=== PATIENT | female | born 1935 | race Caucasian/White ===

== ENCOUNTER 2017-03-10 19:15 | Emergency (ER) | payer OTHER ==
[2017-03-10 20:00] VITALS: BP 155/68; PULSE 70; RESP 20; TEMP 98.6; O2SAT 98
[2017-03-10 21:30] VITALS: BP 128/79; PULSE 77; RESP 18; O2SAT 95
[2017-03-10] MEDS ORDERED: LEVO.1 PO (21:39)
[2017-03-10] MEDS ORDERED: IBAN150T3 PO (21:39)
[2017-03-10] MEDS ORDERED: RANI150T PO (21:39)
[2017-03-10] MEDS ORDERED: GABA400C5 PO (21:39)
[2017-03-10] MEDS ORDERED: GABA600T PO (21:39)
[2017-03-10] MEDS ORDERED: ATEN100T7 PO (21:39)
[2017-03-10] MEDS ORDERED: HYDR-2376 PO (21:39)
[2017-03-10] MEDS ORDERED: LISI40TA PO (21:39)
[2017-03-10] MEDS ORDERED: ATOR80TA45 PO (21:39)
--- NOTE | 2017-03-10 21:41 | PD ---
HPI Chief Complaint: Flank/Kidney Pain Time Seen by Provider: 21:22 Travel History International Travel<30 days: No Contact w/Intl Traveler<30days: No Traveled to known affect area: No History of Present Illness HPI Patient comes in complaining of 4 days off and on of left sided rib pain lateral aspect. It is worsened with movement. It is temporary alleviated with the hydrocodone she takes every 6 hours for her peripheral neuropathy. She denies short of breath she denies cough she denies trauma or injury. Denies heavy lifting her main complaint is localized left-sided rib pain made worse with movement or turning or deep inspiration but denies cough or fever and no URI symptoms no one else is sick with a upper respiratory infection PFSH Past Medical History Heart Rhythm Problems: Yes Diminished Hearing: No GERD: Yes Hypertension: Yes Neurologic: Yes (NEUROPATHY) Thyroid Disease: Yes Tetanus Vaccination: < 5 Years Influenza Vaccination: Yes ?: Not Past Surgical History Body Medical Devices: CUSHION STUFFER Cardiac Surgery: Yes (INCERTABLE CUSHION STUFFER) Hysterectomy: Yes Social History Alcohol Use: No Tobacco Use: No Substance Use: No Allergies-Medications (Allergen,Severity, Reaction): Coded Allergies: NSAIDS (Non-Steroidal Anti-Inflamma (Verified Allergy, Severe, 03/10/17) DUE TO KIDNEYS No Known Allergies (Verified Allergy, Unknown, 03/10/17) Reported Meds & Prescriptions Reported Meds & Active Scripts Active Bactrim DS (Sulfamethoxazole-Trimethoprim) 800-160 Mg Tab 1 Tab PO BID Valium (Diazepam) 2 Mg Tab 2 Mg PO TID PRN Reported Atorvastatin (Atorvastatin Calcium) 80 Mg Tab 80 Mg PO HS Atenolol-Chlorthalidone 100-25 Mg Tab 1 Tab PO DAILY Ibandronate (Ibandronate Sodium) 150 Mg Tab 150 Mg PO Q28D Synthroid (Levothyroxine Sodium) 100 Mcg Tab 100 Mcg PO DAILY Ranitidine (Ranitidine HCl) 150 Mg Tab 150 Mg PO DAILY Hydrocodone-Acetaminophen 7.5-300 Mg Tab 1 Tab PO Q6H PRN Gabapentin 600 Mg Tab 1,200 Mg PO HS Gabapentin 400 Mg Cap 400 Cap PO AM Lisinopril 40 Mg Tab 40 Mg PO DAILY Review of Systems Except as stated in HPI: all other systems reviewed are Neg Respiratory: Positive: Other (patient has left lateral rib pain), No: Cough, Shortness of Breath, Wheezing Physical Exam Narrative GENERAL: In no acute distress awake alert pleasant attitude SKIN: Warm and dry. HEAD: Atraumatic. Normocephalic. EYES: Pupils equal and round. No scleral icterus. No injection or drainage. ENT: No nasal bleeding or discharge. Mucous membranes pink and moist. NECK: Trachea midline. No JVD. CARDIOVASCULAR: Regular rate and rhythm. RESPIRATORY: No accessory muscle use. Clear to auscultation. Breath sounds equal bilaterally. Left-sided lateral rib localized focal tenderness with palpation. Reproducible. Worse when she deepens operation with my hand pushing on the rib. No pain with percussion of that same rib downstream or posterior or anterior only focal pain with me pushing on the lateral rib GASTROINTESTINAL: Abdomen soft, non-tender, nondistended. Hepatic and splenic margins not palpable. MUSCULOSKELETAL: Extremities without clubbing, cyanosis, or edema. No obvious deformities. NEUROLOGICAL: Awake and alert. No obvious cranial nerve deficits. Motor grossly within normal limits. Five out of 5 muscle strength in the arms and legs. Normal speech. PSYCHIATRIC: Appropriate mood and affect; insight and judgment normal. Data Data Last Documented VS Vital Signs Date Time Temp Pulse Resp B/P (MAP) Pulse Ox O2 Delivery O2 Flow Rate FiO2 03/10/17 23:46 80 16 120/55 (76) 97 03/10/17 23:07 Room Air 03/10/17 20:00 98.6 Orders Orders Urinalysis - C+S If Indicated (03/10/17 21:19) Ct Thorax/ Chest Wo Iv [place]ras (03/10/17 ) Oxycodone-Acetamin 5-325 Mg (Percocet (03/10/17 22:00) Urine Culture (03/10/17 21:20) Sulfamet-Trimeth Ds 800-160 Mg (Bactrim (03/10/17 23:45) Ed Discharge Order (03/10/17 23:42) Labs Laboratory Tests Test 03/10/17 21:20 Urine Color YELLOW Urine Turbidity CLOUDY Urine pH 5.5 Urine Specific [place] 1.025 Urine Protein NEG mg/dL Urine Glucose (UA) NEG mg/dL Urine Ketones TRACE mg/dL Urine Occult Blood NEG Urine Nitrite NEG Urine Bilirubin NEG Urine Leukocyte Esterase SMALL Urine WBC 20-24 /hpf Urine WBC Clumps FEW Urine Squamous Epithelial Cells 6-8 /hpf Urine Bacteria FEW /hpf Microscopic Urinalysis Comment CULTURE INDICATED MDM Medical Decision Making Medical Screen Exam Complete: Yes Emergency Medical Condition: Yes Differential Diagnosis diagnosis includes costochondritis versus rib pain versus pathologic fracture. Versus pneumonia versus aortic disease versus other. Narrative Course Patient exam is very much reproducible lateral rib pain with percussion and palpation indicating most likely costochondritis. X-ray is ordered she is allergic to all NSAIDs. Diagnosis Primary Impression: UTI (urinary tract infection) Qualified Codes: N30.00 - Acute cystitis without hematuria Additional Impression: Rib pain Patient Instructions: General Instructions, Rib Contusion (ED), Urinary Tract Infection in Women (ED) Scripts Sulfamethoxazole-Trimethoprim (Bactrim DS) 800-160 Mg Tab 1 TAB PO BID for Infection, #14 TAB 0 Refills Prov: Sam Gomez MD 03/10/17 Diazepam (Valium) 2 Mg Tab 2 MG PO TID Y for MUSCLE SPASM, #15 TAB 0 Refills Prov: Sam Gomez MD 03/10/17 Disposition: 01 DISCHARGE HOME Condition: Good Sam Gomez MD Mar 10, 2017 21:41
[2017-03-10 21:55] LABS: BILIRUBIN, URINE NEG (NEG); BLOOD, URINE NEG (NEG); GLUCOSE,URINE NEG (NEG); KETONE, URINE TRACE mg/dL (NEG); NITRITE,URINE NEG (NEG); PH, URINE 5.5 (5.0-8.5); URINE LEUKOCYTE ESTERASE SMALL (NEG)
[2017-03-10] MEDS ORDERED: oxyCODONE/ACETAMINOPHEN 5 MG/325 MG TAB PO ONE (22:00)
[2017-03-10 22:06] LABS: URINE COLOR YELLOW (YELLW/STRAW)
[2017-03-10 22:08] LABS: BACTERIA, URINE FEW /hpf; WHITE BLOOD CELL CLUMPS FEW
--- NOTE | 2017-03-10 22:48 | RADRPT ---
EXAM DATE/TIME: 03/10/2017 22:09 [facility] COMPARISON: No previous studies available for comparison. INDICATIONS : Left side chest chest and rib pain. No trauma. RADIATION DOSE: 18.89 CTDIvol (mGy) MEDICAL HISTORY : Hypertension. SURGICAL HISTORY : Loop recorder. ENCOUNTER: Initial ACUITY: 4 - 6 days PAIN SCALE: 8/10 LOCATION: Left chest TECHNIQUE: Volumetric scanning of the chest was performed. Using automated exposure control and adjustment of t he mA and/or kV according to patient size, radiation dose was kept as low as reasonably achievable to obtain optimal diagnostic quality images. DICOM format image data is available electronically for r eview and comparison. Follow-up recommendations for detected pulmonary nodules are based at a minimum on nodule size and pa tient risk factors according to Fleischner Society Guidelines. FINDINGS: LUNGS: There is no consolidation or pneumothorax. No concerning pulmonary nodule is visualized. PLEURAE: There is no pleural thickening or pleural effusion. MEDIASTINUM: The heart and great vessels demonstrate no acute abnormality. There is no mediastinal or hilar lymph adenopathy. AXILLAE: Within normal limits. No lymphadenopathy. MUSCULOSKELETAL: Within normal limits for patient age. MISCELLANEOUS: The visualized upper abdominal organs demonstrate no acute abnormality. Implantable device overlying the left chest wall. CONCLUSION: Normal examination. Kiko Raya MD on March 10, 2017 at 22:44 Board Certified Radiologist. This report was verified electronically.
[2017-03-10 23:07] VITALS: BP 116/58; PULSE 74; RESP 15; O2SAT 95
[2017-03-10 23:08] VITALS: RESP 15
[2017-03-10] MEDS ORDERED: BACT800T5 PO (23:38)
[2017-03-10] MEDS ORDERED: DIAZ2 PO (23:38)
[2017-03-10] MEDS ORDERED: SULFAMETHOXAZOLE-TRIMETHOPRIM DS 800-160 MG TAB PO ONE (23:45)
[2017-03-10 23:46] VITALS: BP 120/55
== END 2017-03-11 | disposition home or self-care (01) ==
LOC: PHED 19:15 → PHEFT 03-11
DX: N30.00 Acute cystitis without hematuria (principal); R07.81 Pleurodynia; E07.9 Disorder of thyroid, unspecified; I10 Essential (primary) hypertension; K21.9 Gastro-esophageal reflux disease without esophagitis; G62.9 Polyneuropathy, unspecified
CPT/HCPCS: 71250; 81001; 87086